=== PATIENT | male | born 1940 | race Caucasian/White ===

== ENCOUNTER → 2017-01-15 | Outpatient (CLI) | payer MEDICARE ==
[~2017-01-15] MED LIST: ACET-654 PO; ATOR1TAB21 PO; COUM2.5T11 PO; COZA50TA PO; FLOM5CAP PO; LOSA25TA8 PO; METF500T PO; METO25TAB OR; SIMV40TA2 PO; TRAM50TA2 PO
== END ==
LOC: M SMT 10:51
PROVIDERS: ATTEND Nurse Practitioner Women's Health
DX: N40.0 Benign prostatic hyperplasia without lower urinary tract symptoms (principal)
CPT/HCPCS: 36415; G0103

== ENCOUNTER → 2017-02-03 | Outpatient (REF) | payer MEDICARE ==
[2017-02-03 17:18] LABS: ALBUMIN 3.9 GM/DL (3.2-5.2); ALBUMIN/GLOBULIN RATIO 1.34 (1.00-1.93); ALKALINE PHOSPHATASE 86 U/L (45-117); ALT/SGPT 28 U/L (12-78); ANION GAP 9 MEQ/L (8-16); AST/SGOT 15 U/L (15-37); BILIRUBIN,TOTAL 0.8 MG/DL (0.2-1.0); BLOOD UREA NITROGEN 20 MG/DL (7-18); CALCIUM LEVEL 10.1 MG/DL (8.8-10.2); CARBON DIOXIDE LEVEL 25 MEQ/L (21-32); CHLORIDE LEVEL 109 MEQ/L (98-107); CHOLESTEROL LEVEL 136 MG/DL (<200); CREATININE FOR GFR 1.14 MG/DL (0.70-1.30); GLOMERULAR FILTRATION RATE > 60.0 (>42); GLUCOSE, FASTING 126 MG/DL (83-110); POTASSIUM SERUM 4.2 MEQ/L (3.5-5.1); SODIUM LEVEL 143 MEQ/L (136-145); TOTAL PROTEIN 6.8 GM/DL (6.4-8.2); TRIGLYCERIDES LEVEL 126 MG/DL (<150)
== END ==
LOC: M LABDRWCV 16:21
PROVIDERS: ATTEND Internal Medicine
DX: E11.9 Type 2 diabetes mellitus without complications (principal); E78.5 Hyperlipidemia, unspecified

== ENCOUNTER 2018-03-02 06:46 | Day surgery (SDC) | payer MEDICARE ==
[2018-03-02] MEDS: NS 1,000 ML IV (07:00)
[2018-03-02] MEDS ORDERED: PROPOFOL 200 MG/20 ML VIAL As Ordered (07:49)
[2018-03-02] MEDS ORDERED: ceFAZolin 2 GM/D5W 50 ML IV BAG (J0690 PER 500MG) As Ordered (11:03)
== END 2018-03-02 09:17 | disposition home or self-care (01) ==
LOC: M OPP 06:46
DX: Z12.11 Encounter for screening for malignant neoplasm of colon (principal); K64.0 First degree hemorrhoids; D12.3 Benign neoplasm of transverse colon; K63.5 Polyp of colon; I10 Essential (primary) hypertension; E78.00 Pure hypercholesterolemia, unspecified; F32.9 Major depressive disorder, single episode, unspecified; F41.9 Anxiety disorder, unspecified; N40.0 Benign prostatic hyperplasia without lower urinary tract symptoms; Z79.899 Other long term (current) drug therapy; Z88.8 Allergy status to other drugs, medicaments and biological substances; Z96.653 Presence of artificial knee joint, bilateral
CPT/HCPCS: 45385

== ENCOUNTER → 2018-03-09 | Outpatient (REF) | payer MEDICARE ==
[2018-03-09 19:50] LABS: PSA SCREENING 2.71 NG/ML (< 4.0)
== END ==
LOC: M SFHCCLAY 11:53
DX: Z12.5 Encounter for screening for malignant neoplasm of prostate (principal)
CPT/HCPCS: G0103

== ENCOUNTER → 2018-03-14 | Outpatient (REF) | payer MEDICARE ==
[2018-03-14 18:29] LABS: APPEARANCE, URINE CLEAR (CLEAR); BACTERIA, URINE AUTO NEGATIVE (NEGATIVE); BILIRUBIN, URINE AUTO NEGATIVE (NEGATIVE); BLOOD, URINE BLOOD NEGATIVE (NEGATIVE); COLOR, URINE YELLOW (YELLOW); GLUCOSE, URINE (UA) AUTO 1+ mg/dL (NEGATIVE); KETONE, URINE AUTO NEGATIVE (NEGATIVE); LEUKOCYTE ESTERASE, URINE AUTO NEGATIVE (NEGATIVE); MUCUS, URINE SMALL (NEGATIVE); NITRITE, URINE AUTO NEGATIVE (NEGATIVE); PROTEIN, URINE AUTO 1+ mg/dL (NEGATIVE); RBC, URINE AUTO 0 /HPF (0-3); SPECIFIC GRAVITY URINE AUTO 1.025 (1.002-1.035); SQUAMOUS EPITHELIAL CELL UR AU 0 /HPF (0-6); UROBILINOGEN, URINE AUTO 0.2 mg/dL (0.0-2.0); WBC, URINE AUTO 3 /HPF (0-3)
== END ==
LOC: M SMT 17:52
DX: N40.0 Benign prostatic hyperplasia without lower urinary tract symptoms (principal)
CPT/HCPCS: 81001

== ENCOUNTER 2018-05-19 05:58 | Day surgery (SDC) | payer MEDICARE ==
[2018-05-19] MEDS: TROPICAMIDE 1% OPHTH SOLN 2ML OS (06:20)
[2018-05-19] MEDS: PHENYLEPHRINE 2.5% OPHTH SOL 2ML OS (06:20)
[2018-05-19] MEDS: OFLOXACIN 0.3 % (OCUFLOX) OPTH SOL 5ML OS (06:20)
[2018-05-19] MEDS: PROPARACAINE 0.5% OPHTH SOL 15ML OS (06:20)
[2018-05-19 06:33] LABS: BEDSIDE GLUCOSE 159 MG/DL (83-110)
[2018-05-19] MEDS ORDERED: MIDAZOLAM INJ 2 MG/2 ML VIAL (J2250) As Ordered (07:13)
[2018-05-19] MEDS: POVIDONE-IODINE 5% OPHTH PREP SOL 30ML As Ordered (07:28)
[2018-05-19] MEDS: DUOVISC (0.50ML VISCOAT/0.55ML PROVISC) OPHTH KIT As Ordered (07:33)
[2018-05-19] MEDS: LIDOCAINE 0.75%/EPINEPHRINE 0.025% IN BSS 1ML SYR INTRACAMERAL (OR ONLY) As Ordered (07:33)
[2018-05-19] MEDS: CEFUROXIME 1MG/0.1ML INTRACAMERAL INJ As Ordered (07:33)
[2018-05-19] MEDS: BALANCED SALT IRRIGATION SOLUTION 500ML BAG (FOR OR EYE MACHINE) As Ordered (07:33)
== END 2018-05-19 08:30 | disposition home or self-care (01) ==
LOC: M SDC 05:58
DX: H25.12 Age-related nuclear cataract, left eye (principal); E11.9 Type 2 diabetes mellitus without complications; M12.9 Arthropathy, unspecified; I10 Essential (primary) hypertension; E78.00 Pure hypercholesterolemia, unspecified; K21.9 Gastro-esophageal reflux disease without esophagitis; F41.9 Anxiety disorder, unspecified; F32.9 Major depressive disorder, single episode, unspecified; N40.0 Benign prostatic hyperplasia without lower urinary tract symptoms; Z88.8 Allergy status to other drugs, medicaments and biological substances; Z79.899 Other long term (current) drug therapy; Z79.84 Long term (current) use of oral hypoglycemic drugs; Z96.653 Presence of artificial knee joint, bilateral; Z87.891 Personal history of nicotine dependence
CPT/HCPCS: 66984

== ENCOUNTER 2018-09-15 10:27 | Emergency (ER) | payer MEDICARE ==
[2018-09-15 10:58] LABS: BASO % 0.6 % (0.0-1.0); EOS # 0.3 10^3/uL (0.0-0.50); EOS % 4.5 % (0.0-3.0); HEMOGLOBIN 15.8 g/dl (13.5-17.5); IMMATURE GRANULOCYTE % 0.7 % (0-3.0); LYMPH # 1.3 10^3/uL (1.5-4.5); LYMPH % 18.7 % (24.0-44.0); MEAN CORPUSCULAR HEMOGLOBIN 32.8 pg (27.0-33.0); MEAN CORPUSCULAR HGB CONC 35.9 g/dl (32.0-36.5); MEAN CORPUSCULAR VOLUME 91.3 fl (80.0-96.0); MONO # 0.8 10^3/uL (0.0-0.8); MONO % 11.4 % (0.0-5.0); NEUTROPHILS # 4.3 10^3/uL (1.8-7.7); NEUTROPHILS % 64.1 % (36.0-66.0); PLATELET COUNT, AUTOMATED 163 10^3/uL (150-450); RED BLOOD COUNT 4.82 10^6/uL (4.30-6.10); RED CELL DISTRIBUTION WIDTH 12.4 % (11.5-14.5); WHITE BLOOD COUNT 6.7 10^3/uL (4.0-10.0)
[2018-09-15 11:08] LABS: INR 0.92; PROTHROMBIN TIME 12.5 SECONDS (12.1-14.4)
[2018-09-15 11:09] LABS: PARTIAL THROMBOPLASTIN TIME 35.3 SECONDS (25.4-37.6)
[2018-09-15 11:34] LABS: ALBUMIN 3.6 GM/DL (3.2-5.2); ALBUMIN/GLOBULIN RATIO 1.24 (1.00-1.93); ALKALINE PHOSPHATASE 114 U/L (45-117); ALT/SGPT 22 U/L (12-78); ANION GAP 7 MEQ/L (8-16); AST/SGOT 6 U/L (7-37); BILIRUBIN,DIRECT 0.1 MG/DL (0.0-0.2); BILIRUBIN,TOTAL 0.6 MG/DL (0.2-1.0); BLOOD UREA NITROGEN 22 MG/DL (7-18); CALCIUM LEVEL 10.4 MG/DL (8.8-10.2); CARBON DIOXIDE LEVEL 27 MEQ/L (21-32); CHLORIDE LEVEL 103 MEQ/L (98-107); CPK CREATINE PHOSPHOKINASE 58 U/L (39-308); CREATININE FOR GFR 1.45 MG/DL (0.70-1.30); FREE T4 1.14 NG/DL (0.76-1.46); GLOMERULAR FILTRATION RATE 50.4 (>42); GLUCOSE, FASTING 386 MG/DL (70-100); LIPASE 334 U/L (73-393); POTASSIUM SERUM 4.3 MEQ/L (3.5-5.1); SODIUM LEVEL 137 MEQ/L (136-145); TOTAL PROTEIN 6.5 GM/DL (6.4-8.2); TROPONIN I < 0.02 NG/ML (< 0.10)
[2018-09-15] MEDS ORDERED: ISOVUE-370 76% 100ML VIAL (Q9967) As Ordered (11:50)
[2018-09-15] MEDS: MORPHINE 4 MG/ML 1ML VIAL/SYRINGE (J2270) IV (12:27)
== END 2018-09-15 14:15 | disposition home or self-care (01) ==
LOC: M ED 10:27
DX: R07.89 Other chest pain (principal); E11.9 Type 2 diabetes mellitus without complications; I10 Essential (primary) hypertension; E78.5 Hyperlipidemia, unspecified
CPT/HCPCS: J2270

== ENCOUNTER 2018-11-09 12:05 | Emergency (ER) | payer MEDICARE ==
[~2018-11-09] VITALS: Ht 162.6 cm; Wt 90.9 kg
[~2018-11-09 12:05] MED LIST changes: -ACET-654 PO; +ACET1TAB55 PO; -COUM2.5T11 PO; +COUM2.5T17 PO; +DITR5TAB PO; +ESCI10TA2 PO; +FLOM0.4C39 PO; -FLOM5CAP PO; +LOSA25TA33 PO; -LOSA25TA8 PO; +LOSA50TA73 PO; -METF500T PO; +METF500T13 PO; +MOBI4TAB PO; +PERC5TAB12 PO
[2018-11-09] MEDS ORDERED: DULO1CAP3 (12:15)
[2018-11-09] MEDS ORDERED: GABA-843 PO (14:25)
[2018-11-09] MEDS ORDERED: GABAPENTIN 300 MG CAP PO ONE (14:30)
[2018-11-09 14:38] VITALS: BP 130/82
== END 2018-11-09 14:40 | disposition home or self-care (01) ==
LOC: M ED 12:05
DX: G57.93 Unspecified mononeuropathy of bilateral lower limbs (principal); E11.9 Type 2 diabetes mellitus without complications; I10 Essential (primary) hypertension; F33.9 Major depressive disorder, recurrent, unspecified; F41.9 Anxiety disorder, unspecified; N40.0 Benign prostatic hyperplasia without lower urinary tract symptoms; Z79.899 Other long term (current) drug therapy; Z79.84 Long term (current) use of oral hypoglycemic drugs; Z88.8 Allergy status to other drugs, medicaments and biological substances

== ENCOUNTER → 2018-12-01 | Outpatient (CLI) | payer MEDICARE ==
[~2018-12-01] MED LIST changes: +DULO1CAP3; +GABA-843 PO; +LOSA25TA14 PO; -LOSA25TA33 PO; -LOSA50TA73 PO; +LOSA50TA88 PO
--- NOTE | 2018-12-01 13:58 | REP ---
Three-phase bone scan of the knees: History: Bilateral knee replacements. Rule out loosening. Right knee replacement greater than 30 years ago. Left knee replacement 2016. Technique: 22.0 mCi technetium 99m MDP is injected and standard three-phase bone scanning of the knees is acquired. Findings: Anterior and posterior flow study is normal. Blood pool images and delayed scan images demonstrate expected bone prosthetic interface uptake associated with bilateral knee arthroplasties. There is no focal area of increased uptake to suggest loosening. Uptake is a little more prominent at the right patellar interface than it is on the left. Impression: No scintigraphic evidence to suggest loosening. Electronically Signed by Lacho Pond MD 12/01/2018 06:10 P
== END ==
LOC: M RAD 10:36
PROVIDERS: ATTEND Physician Assistant
DX: Z47.1 Aftercare following joint replacement surgery (principal); Z96.653 Presence of artificial knee joint, bilateral
CPT/HCPCS: 78315; A9503

== ENCOUNTER → 2018-12-19 | Outpatient (CLI) | payer MEDICARE ==
[2018-12-19 15:11] LABS: RHEUMATOID FACTOR QUANT < 10.0 IU/ML (<15.0); TOTAL PROTEIN 6.9 GM/DL (6.4-8.2)
[2018-12-19 15:21] LABS: FOLATE 18.8 NG/ML
[2018-12-20 13:12] LABS: ALBUMIN 4.11 GM/DL (3.29-5.55); ALBUMIN % 59.6 % (55.8-66.1); ALPHA-1-GLOBULIN % 4.7 % (2.9-4.9); ALPHA-2-GLOBULINS % 12.4 % (7.1-11.8); BETA-1-GLOBULINS % 6.1 % (4.7-7.2); GAMMA GLOBULIN % 12.2 % (11.1-18.8)
[2018-12-20 13:13] LABS: ALPHA-1-GLOBULINS 0.32 GM/DL (0.17-0.41); ALPHA-2-GLOBULINS 0.86 GM/DL (0.42-0.99); BETA-1-GLOBULINS 0.42 GM/DL (0.28-0.60); BETA-2-GLOBULINS 0.35 GM/DL (0.19-0.55); GAMMA GLOBULINS 0.84 GM/DL (0.65-1.58)
[2018-12-21 10:18] LABS: VITAMIN B12 LEVEL 421 PG/ML (232-1245)
== END ==
LOC: M LAB 14:03
PROVIDERS: ATTEND Psychiatry & Neurology Neurology
DX: G62.9 Polyneuropathy, unspecified (principal); M06.39 Rheumatoid nodule, multiple sites; L93.0 Discoid lupus erythematosus; E53.8 Deficiency of other specified B group vitamins; E51.9 Thiamine deficiency, unspecified

== ENCOUNTER → 2019-01-26 | Outpatient (REF) | payer MEDICARE ==
[2019-01-26 18:58] LABS: ALBUMIN 3.7 GM/DL (3.2-5.2); ALT/SGPT 21 U/L (12-78); BILIRUBIN,TOTAL 0.5 MG/DL (0.2-1.0); BLOOD UREA NITROGEN 25 MG/DL (7-18); CALCIUM LEVEL 10.2 MG/DL (8.8-10.2); CARBON DIOXIDE LEVEL 27 MEQ/L (21-32); CHLORIDE LEVEL 108 MEQ/L (98-107); CHOLESTEROL LEVEL 159 MG/DL (<200); CHOLESTEROL RISK RATIO 3.975 (<5); CREATININE FOR GFR 1.14 MG/DL (0.70-1.30); GLOMERULAR FILTRATION RATE > 60.0 (>42); GLUCOSE, FASTING 142 MG/DL (70-100); HDL CHOLESTEROL 40 MG/DL (>40); LDL CHOLESTEROL 94 MG/DL (<100); NON-HDL-C 119 MG/DL; POTASSIUM SERUM 4.4 MEQ/L (3.5-5.1); SODIUM LEVEL 141 MEQ/L (136-145); TOTAL PROTEIN 6.4 GM/DL (6.4-8.2); TRIGLYCERIDES LEVEL 126 MG/DL (<150)
[2019-01-26 19:22] LABS: HEMOGLOBIN A1c 7.5 %
== END ==
LOC: M LABDRWCV 17:02
PROVIDERS: ATTEND Internal Medicine
DX: E78.5 Hyperlipidemia, unspecified (principal); E11.9 Type 2 diabetes mellitus without complications; I10 Essential (primary) hypertension

== ENCOUNTER 2019-02-27 21:06 | Emergency (ER) | payer MEDICARE ==
[~2019-02-27] VITALS: Ht 160 cm; Wt 84.1 kg
[~2019-02-27 21:06] MED LIST changes: +METO1TAB63 OR; -METO25TAB OR
[2019-02-27] MEDS ORDERED: OMEP10CASR PO (21:36)
[2019-02-27 22:19] LABS: BASO % 0.5 % (0.0-1.0); EOS # 0.2 10^3/uL (0.0-0.50); EOS % 1.7 % (0.0-3.0); HEMATOCRIT 45.8 % (42.0-52.0); HEMOGLOBIN 15.5 g/dl (13.5-17.5); LYMPH # 1.2 10^3/uL (1.5-4.5); LYMPH % 13.9 % (24.0-44.0); MEAN CORPUSCULAR HEMOGLOBIN 32.2 pg (27.0-33.0); MEAN CORPUSCULAR HGB CONC 33.8 g/dl (32.0-36.5); MONO # 1.1 10^3/uL (0.0-0.8); NEUTROPHILS # 6.2 10^3/uL (1.8-7.7); NEUTROPHILS % 70.4 % (36.0-66.0); PLATELET COUNT, AUTOMATED 202 10^3/uL (150-450); RED BLOOD COUNT 4.82 10^6/uL (4.30-6.10); WHITE BLOOD COUNT 8.8 10^3/uL (4.0-10.0)
[2019-02-27] MEDS ORDERED: NS 1,000 ML IV SCH (22:29)
[2019-02-27 22:30] LABS: ALT/SGPT 26 U/L (12-78); BILIRUBIN,TOTAL 0.7 MG/DL (0.2-1.0); BLOOD UREA NITROGEN 24 MG/DL (7-18); CALCIUM LEVEL 10.2 MG/DL (8.8-10.2); CARBON DIOXIDE LEVEL 30 MEQ/L (21-32); CHLORIDE LEVEL 106 MEQ/L (98-107); CREATININE FOR GFR 1.28 MG/DL (0.70-1.30); GLUCOSE, FASTING 158 MG/DL (70-100); POTASSIUM SERUM 4.1 MEQ/L (3.5-5.1); SODIUM LEVEL 141 MEQ/L (136-145); TOTAL PROTEIN 7.1 GM/DL (6.4-8.2)
[2019-02-27] MEDS ORDERED: KETOROLAC 30 MG/ML VIAL (J1885) IV ONE (22:45)
[2019-02-27] MEDS ORDERED: GABAPENTIN 100 MG CAP PO ONE (22:45)
--- NOTE | 2019-02-27 23:06 | REPVR ---
EXAM: CT Head Without Contrast EXAM DATE/TIME: 02/27/2019 10:37 PM CLINICAL HISTORY: 78 years old, male; Pain; Other: AMS; Additional info: Altered mental status TECHNIQUE: Imaging protocol: Axial computed tomography images of the head/brain without contrast. Radiation optimization: All CT scans at this facility use at least one of these dose optimization techniques: automated exposure control; mA and/or kV adjustment per patient size (includes targeted exams where dose is matched to clinical indication); or iterative reconstruction. COMPARISON: No relevant prior studies available. FINDINGS: Brain: There is mild patchy low attenuation of deep white matter. There is slight prominence of the peripheral sulci. Ventricles: There is moderate prominence of the central ventricular system with some prominence of the temporal horns and some discordance to the peripheral sulci. Bones/joints: Unremarkable. No acute fracture. Sinuses: Visualized sinuses are unremarkable. No acute sinusitis. Mastoid air cells: Visualized mastoid air cells are unremarkable. No mastoid effusion. Auditory system: Debris in the left external auditory canal. Soft tissues: Unremarkable. IMPRESSION: 1. Mild chronic ischemic white matter change and atrophy. 2. Relative prominence of the central ventricular system including temporal horns with slight discordance to peripheral sulci. Some degree of normal pressure hydrocephalus is not excluded. 3. Otherwise negative noncontrast head CT. Electronically signed by: Darrian Haddad On 02/27/2019 23:06:45 PM
[2019-02-27 23:29] LABS: BILIRUBIN,DIRECT 0.2 MG/DL (0.0-0.2); CK-MB VALUE MASS < 1.0 NG/ML (<3.6); CPK CREATINE PHOSPHOKINASE 24 U/L (39-308); ETHYL ALCOHOL (ETHANOL) < 0.003 % (0.000-0.010); MB/CK RELATIVE INDEX 4.17 (< OR =4); SALICYLATE LEVEL < 1.7 MG/DL (5.0-30.0); TROPONIN I < 0.02 NG/ML (< 0.10)
[2019-02-27 23:30] VITALS: BP 113/69
[2019-02-27 23:30] LABS: ACETAMINOPHEN LEVEL < 2.0 UG/ML (10.0-30.0)
--- NOTE | 2019-02-28 05:41 | ED PDOC ---
Post-Departure Follow-Up dr mina motta faxed formal report of ct head for fu Shun Ruiz MD Feb 28, 2019 05:41
--- NOTE | 2019-02-28 08:10 | REP ---
Portable chest, 10:46 p.m., single AP semi upright view: Comparison is 09/15/2018. The lung peterson are clear. The cardiac size is normal. The kelton, mediastinum, and skeletal structures are unremarkable. Impression: Negative portable chest. There is no interval change except for positioning. Electronically Signed by Joreg Graham MD 02/28/2019 08:01 A
--- NOTE | 2019-02-28 21:27 | ECGEPIP ---
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
== END 2019-02-27 23:59 | disposition home or self-care (01) ==
LOC: M ED 21:06
DX: F03.90 Unspecified dementia, unspecified severity, without behavioral disturbance, psychotic disturbance, mood disturbance, and anxiety (principal)
CPT/HCPCS: 36415; 70450; 71045; 80053; 81001; 82248; 82550; 82553; 84443; 84484; 85025; 93005; 93041; 94760; 96361; 96374; 99285; G0480; J1885

== ENCOUNTER → 2019-05-03 | Outpatient (REF) | payer MEDICARE ==
[~2019-05-03] MED LIST changes: -DULO1CAP3; +DULO1CAP6; +OMEP10CASR PO
[2019-05-03 17:13] LABS: ALBUMIN 3.8 GM/DL (3.2-5.2); BILIRUBIN,TOTAL 0.4 MG/DL (0.2-1.0); CALCIUM LEVEL 10.2 MG/DL (8.8-10.2); CHOLESTEROL RISK RATIO 3.525 (<5); CREATININE FOR GFR 1.33 MG/DL (0.70-1.30); GLOMERULAR FILTRATION RATE 55.5 (>42); POTASSIUM SERUM 4.4 MEQ/L (3.5-5.1); TOTAL PROTEIN 7.1 GM/DL (6.4-8.2)
[2019-05-03 17:35] LABS: HEMOGLOBIN A1c 7.1 %
[2019-05-03 18:11] LABS: MAU/CREAT RATIO 264.2 MCG/MG (0.0-30.0)
== END ==
LOC: M LABDRWCV 16:12
PROVIDERS: ATTEND Internal Medicine
DX: I10 Essential (primary) hypertension (principal); E78.5 Hyperlipidemia, unspecified; E11.9 Type 2 diabetes mellitus without complications

== ENCOUNTER → 2019-08-15 | Outpatient (REF) | payer MEDICARE ==
[2019-08-15 17:15] LABS: BASO # 0.1 10^3/uL (0.0-0.2); BASO % 0.8 % (0.0-1.0); EOS # 0.5 10^3/uL (0.0-0.5); EOS % 8.3 % (0.0-3.0); HEMATOCRIT 41.7 % (42.0-52.0); HEMOGLOBIN 14.7 g/dl (13.5-17.5); LYMPH # 1.7 10^3/uL (1.5-5.0); LYMPH % 27.1 % (24.0-44.0); MEAN CORPUSCULAR HEMOGLOBIN 34.1 pg (27.0-33.0); MEAN CORPUSCULAR HGB CONC 35.3 g/dl (32.0-36.5); MEAN CORPUSCULAR VOLUME 96.8 fl (80.0-96.0); MONO # 0.7 10^3/uL (0.0-0.8); MONO % 10.8 % (0.0-5.0); NEUTROPHILS # 3.2 10^3/uL (1.5-8.5); NEUTROPHILS % 51.6 % (36.0-66.0); PLATELET COUNT, AUTOMATED 150 10^3/uL (150-450); RED BLOOD COUNT 4.31 10^6/uL (4.30-6.10); WHITE BLOOD COUNT 6.2 10^3/uL (4.0-10.0)
[2019-08-15 17:16] LABS: ALBUMIN 3.4 GM/DL (3.2-5.2); ALT/SGPT 26 U/L (12-78); BILIRUBIN,TOTAL 0.5 MG/DL (0.2-1.0); BLOOD UREA NITROGEN 21 MG/DL (7-18); C REACTIVE PROTEIN QUANTITATIV 0.34 MG/DL (0.00-0.30); CALCIUM LEVEL 9.9 MG/DL (8.8-10.2); CARBON DIOXIDE LEVEL 27 MEQ/L (21-32); CHLORIDE LEVEL 108 MEQ/L (98-107); CHOLESTEROL LEVEL 148 MG/DL (<200); CHOLESTEROL RISK RATIO 3.794 (<5); GLOMERULAR FILTRATION RATE > 60.0 (>42); GLUCOSE, FASTING 183 MG/DL (70-100); HDL CHOLESTEROL 39 MG/DL (>40); LDL CHOLESTEROL 73 MG/DL (<100); NON-HDL-C 109 MG/DL; POTASSIUM SERUM 4.1 MEQ/L (3.5-5.1); RHEUMATOID FACTOR QUANT < 10.0 IU/ML (<15.0); SODIUM LEVEL 142 MEQ/L (136-145); TOTAL PROTEIN 6.7 GM/DL (6.4-8.2); TRIGLYCERIDES LEVEL 180 MG/DL (<150)
[2019-08-15 17:32] LABS: HEMOGLOBIN A1c 7.7 %
[2019-08-18 14:22] LABS: ANA (HEP2) Negative (.); Lyme Disease IgG Ab 18 kDa Ban Absent (.); Lyme Disease IgG Ab 23 kDa Ban Present (.); Lyme Disease IgG Ab 28 kDa Ban Absent (.); Lyme Disease IgG Ab 30 kDa Ban Absent (.); Lyme Disease IgG Ab 39 kDa Ban Present (.); Lyme Disease IgG Ab 41 kDa Ban Absent (.); Lyme Disease IgG Ab 45 kDa Ban Absent (.); Lyme Disease IgG Ab 58 kDa Ban Absent (.); Lyme Disease IgG Ab 66 kDa Ban Absent (.); Lyme Disease IgG Ab 93 kDa Ban Absent (.); Lyme Disease IgG West Blot Int Negative (.); Lyme Disease IgG/IgM Antibodie 0.93 ISR (0.00-0.90); Lyme Disease IgM Ab 23 kDa Ban Absent (.); Lyme Disease IgM Ab 39 kDa Ban Absent (.); Lyme Disease IgM Ab 41 kDa Ban Absent (.); Lyme Disease IgM West Blot Int Negative (.)
== END ==
LOC: M LABDRWCV 16:10
PROVIDERS: ATTEND Internal Medicine
DX: E78.5 Hyperlipidemia, unspecified (principal); I10 Essential (primary) hypertension; G62.9 Polyneuropathy, unspecified; M54.12 Radiculopathy, cervical region; E11.9 Type 2 diabetes mellitus without complications

== ENCOUNTER 2020-02-18 11:28 | Inpatient (IN) | payer MEDICARE ==
[~2020-02-18] VITALS: Ht 170.2 cm; Wt 94.3 kg
[~2020-02-18 11:28] MED LIST changes: -DULO1CAP6; +DULO1CAP6 PO; -SIMV40TA2 PO; +SIMV40TA20 PO
[2020-02-18] MEDS ORDERED: NS 500 ML IV ONE ×2 (12:00→13:15)
[2020-02-18] MEDS ORDERED: ONDANSETRON 4MG/2ML VIAL (J2405) IV ONE (12:00)
[2020-02-18 12:05] LABS: VENOUS BASE EXCESS -9.8 (-2.0-2.0); VENOUS O2 SATURATION 60.9 % (60.0-80.0); VENOUS PARTIAL PRESSURE CO2 60.5 mmHg (38.0-50.0); VENOUS PARTIAL PRESSURE O2 39.2 mmHg (30.0-50.0); VENOUS PH 7.138 UNITS (7.330-7.430); VENOUS TOTAL CO2 21.9 MEQ/L (24.0-28.0)
[2020-02-18 12:12] LABS: BASO # 0.1 10^3/uL (0.0-0.2); BASO % 0.4 % (0.0-1.0); EOS # 0.3 10^3/uL (0.0-0.5); EOS % 1.9 % (0.0-3.0); HEMATOCRIT 43.4 % (42.0-52.0); HEMOGLOBIN 14.4 g/dl (13.5-17.5); LYMPH % 13.3 % (24.0-44.0); MEAN CORPUSCULAR HEMOGLOBIN 32.1 pg (27.0-33.0); MEAN CORPUSCULAR HGB CONC 33.2 g/dl (32.0-36.5); MEAN CORPUSCULAR VOLUME 96.9 fl (80.0-96.0); MONO # 0.9 10^3/uL (0.0-0.8); MONO % 5.9 % (0.0-5.0); NEUTROPHILS # 11.5 10^3/uL (1.5-8.5); NEUTROPHILS % 76.9 % (36.0-66.0); PLATELET COUNT, AUTOMATED 214 10^3/uL (150-450); RED BLOOD COUNT 4.48 10^6/uL (4.30-6.10)
[2020-02-18 12:22] LABS: INR 1.01
[2020-02-18 12:39] LABS: ALBUMIN 3.5 GM/DL (3.2-5.2); ALT/SGPT 52 U/L (12-78); BILIRUBIN,DIRECT < 0.1 MG/DL (0.0-0.2); BILIRUBIN,TOTAL 0.4 MG/DL (0.2-1.0); BLOOD UREA NITROGEN 25 MG/DL (7-18); CALCIUM LEVEL 9.6 MG/DL (8.8-10.2); CARBON DIOXIDE LEVEL 21 MEQ/L (21-32); CHLORIDE LEVEL 105 MEQ/L (98-107); CK-MB VALUE MASS < 1.0 NG/ML (<3.6); CPK CREATINE PHOSPHOKINASE 35 U/L (39-308); CREATININE FOR GFR 1.61 MG/DL (0.70-1.30); GLOMERULAR FILTRATION RATE 44.4 (>42); GLUCOSE, FASTING 329 MG/DL (70-100); LIPASE 103 U/L (73-393); MB/CK RELATIVE INDEX 2.86 (< OR =4); POTASSIUM SERUM 3.5 MEQ/L (3.5-5.1); SODIUM LEVEL 138 MEQ/L (136-145); TOTAL PROTEIN 6.9 GM/DL (6.4-8.2)
[2020-02-18] MEDS ORDERED: TAMS1CAP17 (12:45)
[2020-02-18] MEDS ORDERED: ASPIRIN 81 MG CHEW TABLET PO ONE (12:45)
[2020-02-18] MEDS ORDERED: JANU100T PO (12:45)
[2020-02-18] MEDS ORDERED: AMIT25TA PO (12:45)
[2020-02-18 12:54] LABS: ABG BASE EXCESS -6.2 (-2.0-2.0); ABG HCO3 18.9 MEQ/L (22.0-26.0); ABG O2 SATURATION 95.6 % (95.0-99.0); ABG PARTIAL PRESSURE CO2 36.4 mmHg (35.0-45.0); ABG PARTIAL PRESSURE O2 82.6 mmHg (75.0-100.0); ABG STANDARD HCO3 19.4 MEQ/L (22.0-26.0); ABG TOTAL CO2 20.1 MEQ/L (23.0-31.0); ABG pH (ARTERIAL) 7.334 UNITS (7.350-7.450)
--- NOTE | 2020-02-18 12:55 | REP ---
CHEST, SINGLE VIEW: Single view of the chest is performed. Comparison 02/27/2019. There is mild cardiomegaly. Mild calcification and tortuosity of the thoracic aorta. Mediastinal is unchanged. No acute infiltrate is seen. IMPRESSION: Mild cardiomegaly. No acute infiltrate. Electronically Signed by Jorge Chang MD 02/18/2020 12:58 P
[2020-02-18] MEDS ORDERED: NS 1,000 ML IV ONE (13:00)
[2020-02-18] MEDS ORDERED: NS 700 ML IV ONE (14:00)
[2020-02-18] MEDS ORDERED: PIPERACILLIN/TAZOBACTAM SOD 4.5 GM in D5W MINI-BAG PLUS 50 ML IV ONE (14:00)
[2020-02-18 14:44] LABS: CK-MB VALUE MASS 1.1 NG/ML (<3.6); MB/CK RELATIVE INDEX 2.68 (< OR =4); TROPONIN I 0.34 NG/ML (< 0.10)
--- NOTE | 2020-02-18 16:02 | HPEPDOC ---
[facility] Medical History & Physical Date of Admission Feb 18, 2020 Date of Service: Feb 18, 2020 Attending Physician: ANILA EVANGELISTA MD History and Physical CHIEF COMPLAINT: , Vomiting and abdominal pain HISTORY OF PRESENT ILLNESS: 79-year-old male with past medical history of hypertension, hyperlipidemia and diabetes mellitus presents from home with vomiting, abdominal pain. Patient felt fine up until this morning when he started experiencing significant fatigue with inability to get out of bed, which is very unusual for him. He subsequently developed left upper quadrant abdominal pain followed by 2 episodes of nonbloody vomiting. He reports significant dizziness/lightheadedness and almost passed out but does not recall any syncopal episode. He came to the emergency department and had 4 further episodes of nonbloody vomiting, no other symptoms. He was hypotensive with significantly elevated lactic acid in the ED and received aggressive IV fluid resuscitation. Patient responded really well, blood pressure within normal limits, has had near complete resolution of symptoms, no longer having any fatigue, dizziness or lightheadedness. He does appear to have increased work of breathing, currently on 2 L of oxygen by nasal cannula, not on home oxygen. He denies any significant dyspnea, cough, chest pain, diarrhea or headache. 10 point review of system is negative except for above PAST MEDICAL HISTORY: 1. Hypertension. 2. Hyperlipidemia. 3. Diabetes mellitus. PAST SURGICAL HISTORY: 1. , Bilateral knee replacements. 2. Abdominal surgery, patient unsure of what was done. 3. Wrist surgery. SOCIAL HISTORY: Previous smoker, quit many years ago. Social alcohol use. Denies drug use FAMILY HISTORY: . Both parents had malignancy ALLERGIES: Please see below. HOME MEDICATIONS: Please see below. PHYSICAL EXAMINATION: VITAL SIGNS: Please see below. GENERAL: No distress HEENT: Normocephalic, atraumatic, moist mucous membranes NECK: Supple CARDIOVASCULAR EXAMINATION: S1, S2, no murmurs RESPIRATORY EXAMINATION: Tachypneic, scattered rhonchi, no wheezing ABDOMINAL EXAMINATION: Soft, nontender, nondistended, positive bowel sounds EXTREMITIES: Range of motion intact SKIN: No rash NEUROLOGICAL EXAMINATION: Alert and oriented 3, no focal deficits PSYCHIATRIC EXAMINATION: Calm and cooperative LABORATORY DATA: See below. IMAGING: . Chest x-ray without acute pathology MICROBIOLOGY: Please see below. ASSESSMENT: 79-year-old male with multiple medical comorbidities who presented with abdominal pain and vomiting being admitted for hypotension, acute kidney injury and possible COVID-19 exposure. PLAN: 1. Acute kidney injury/hypotension/vomiting/abdominal pain. Etiology for abdominal pain is unknown, questionable COVID-19, abdominal pain, possibly the etiology for vomiting which led to hypotension, which further led to acute kidney injury/dehydration. Patient has had no oral intake today. Patient received aggressive IV resuscitation in the ED with good response, cu rrently hemodynamically stable, we'll avoid further IV hydration for now as long as COVID-19 is on the differential as that can worsen the outcome. 2. COVID-19 exposure Patient's [id number]-[id number] works at [employer], she worked up until 3 days ago, came to visit him 3 days ago, patient reports that she is asymptomatic but does have significant patient exposure. Respiratory viral panel with reflex COVID-19 ordered. Respiratory precautions as per hospital protocol 3. Elevated lactate. Likely related to hypotension with combination of metformin, should improve significantly after IV hydration, repeat pending. 4. Hypertension. Continue home meds with hold parameters. 5. Diabetes mellitus. Hold metformin, sliding scale insulin coverage with meals and at bedtime. 6. Hyperlipidemia. Continue statin DVT prophylaxis: Lovenox. GI prophylaxis: Not needed Vital Signs Vital Signs Date Time Temp Pulse Resp B/P (MAP) Pulse Ox O2 Delivery O2 Flow Rate FiO2 02/18/20 14:45 101 115/70 (85) 93 02/18/20 13:56 97.1 02/18/20 12:45 22 Nasal Cannula 2.0 Laboratory Data Labs 24H Laboratory Tests 2 02/18/20 11:49: Bedside Glucose (Misc Panel) 341H 02/18/20 11:58: Prothrombin Time 13.0, Prothromb Time International Ratio 1.01, Blood Gas Bicarbonate Standard 16.0, Venous Blood pH 7.138L, Venous Blood Partial Pressure CO2 60.5H, Venous Blood Partial Pressure O2 39.2, Venous Blood Total Carbon Dioxide 21.9L, Venous Blood HCO3 20.0L, Venous Blood Oxygen Saturation 60.9, Venous Blood Base Excess -9.8L, Anion Gap 12, Glomerular Filtration Rate 44.4, Lactic Acid Level 8.2*H, Calcium Level 9.6, Total Bilirubin 0.4, Direct Bilirubin < 0.1, Aspartate Amino Transf (AST/SGOT) 39H, Alanine Aminotransferase (ALT/SGPT) 52, Alkaline Phosphatase 110, Total Creatine Kinase 35L, Creatine Kinase MB < 1.0, Creatine Kinase MB Relative Index 2.86, Troponin I 0.10, Total Protein 6.9, Albumin 3.5, Albumin/Globulin Ratio 1.03, Lipase 103 02/18/20 11:59: Immature Granulocyte % (Auto) 1.6, Neutrophils (%) (Auto) 76.9H, Lymphocytes (%) (Auto) 13.3L, Monocytes (%) (Auto) 5.9H, Eosinophils (%) (Auto) 1.9, Basophils (%) (Auto) 0.4, Neutrophils # (Auto) 11.5H, Lymphocytes # (Auto) 2.0, Monocytes # (Auto) 0.9H, Eosinophils # (Auto) 0.3, Basophils # (Auto) 0.1, Nucleated Red Blood Cells % (auto) 0.0 02/18/20 12:22: Urine Color YELLOW, Urine Appearance CLOUDYH, Urine pH 5.0, Urine Specific [place] 1.018, Urine Protein 2+H, Urine Glucose (UA) 1+H, Urine Ketones NEGATIVE, Urine Blood 2+H, Urine Nitrite NEGATIVE, Urine Bilirubin NEGATIVE, Urine Urobilinogen 0.2, Urine Leukocyte Esterase NEGATIVE, Urine WBC (Auto) 4H, Urine RBC (Auto) 27H, Urine Hyaline Casts (Auto) 0, Urine Bacteria (Auto) 1+H, Urine Squamous Epithelial Cells 1, Urine Amorphous Sediment SMALLH, Urine Mucus (Auto) SMALL, Urine Sperm (Auto) 02/18/20 12:43: Blood Gas Bicarbonate Standard 19.4L, Arterial Blood pH 7.334L, Arterial Blood Partial Pressure CO2 36.4, Arterial Blood Partial Pressure O2 82.6, Arterial Blood Total CO2 20.1L, Arterial Blood HCO3 18.9L, Arterial Blood Base Excess - 6.2L, Arterial Blood Oxygen Saturation 95.6 02/18/20 14:08: Total Creatine Kinase 41, Creatine Kinase MB 1.1, Creatine Kinase MB Relative Index 2.68, Troponin I 0.34#H CBC/BMP Laboratory Tests 02/18/20 11:58 02/18/20 11:59 Microbiology Microbiology 02/18/20 Blood Culture, Received Pending 02/18/20 Blood Culture, Received Pending Home Medications Scheduled Atorvastatin Calcium (Atorvastatin Calcium) 20 Mg Tab, 20 MG PO DAILY Gabapentin (Gabapentin) 300 Mg Cap, 300 MG PO TID Metformin HCl (Metformin HCl) 500 Mg Tab, 500 MG PO QID Metoprolol Tartrate (Metoprolol Tartrate) 25 Mg Tab, 25 MG OR DAILY Omeprazole (Omeprazole) 10 Mg Capsule.dr, 20 MG PO DAILY Tamsulosin HCl (Flomax) 0.4 Mg Cap, 0.4 MG PO BID Scheduled PRN Acetaminophen (Acetaminophen) 325 Mg Tab, 650 MG PO BID PRN for pain Tramadol HCl (Tramadol HCl) 50 Mg Tab, 50 MG PO DAILY PRN for pain Miscellaneous Medications Amitriptyline HCl (Amitriptyline HCl) 25 Mg Tablet Duloxetine Hcl (Duloxetine HCl) 60 Mg Cap Sitagliptin Phosphate (Januvia) 100 Mg Tablet Tamsulosin Hcl (Tamsulosin HCl) 0.4 Mg Capsule Allergies Coded Allergies: meperidine (Verified Adverse Reaction, Intermediate, TACHYCARDIA, 02/27/19) A-FIB/CHADSVASC A-FIB History Current/History of A-Fib/PAF?: No ANILA EVANGELISTA MD Feb 18, 2020 16:02
[2020-02-18 16:54] LABS: INR 1.12; PROTHROMBIN TIME 14.1 SECONDS (11.8-14.0)
[2020-02-18 17:02] LABS: C REACTIVE PROTEIN QUANTITATIV 0.63 MG/DL (0.00-0.30)
[2020-02-18 17:12] LABS: CALCIUM LEVEL 8.8 MG/DL (8.8-10.2); CK-MB VALUE MASS 2.1 NG/ML (<3.6); CREATININE FOR GFR 1.66 MG/DL (0.70-1.30); GLOMERULAR FILTRATION RATE 42.9 (>42); MB/CK RELATIVE INDEX 4.57 (< OR =4); POTASSIUM SERUM 4.7 MEQ/L (3.5-5.1); TROPONIN I 0.43 NG/ML (< 0.10)
[2020-02-18 17:20] VITALS: BP 120/86
[2020-02-18] MEDS ORDERED: METF-954 PO (17:34)
[2020-02-18] MEDS ORDERED: METO1TAB32 PO (17:34)
[2020-02-18] MEDS ORDERED: GABA600T4 PO (17:34)
[2020-02-18] MEDS: NS 1,000 ML IV SCH (17:45)
[2020-02-18] MEDS: AZITHROMYCIN 250MG TABLET PO SCH (17:45)
--- NOTE | 2020-02-18 19:07 | ECGEPIP ---
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
--- NOTE | 2020-02-18 19:07 | ECGEPIP ---
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
--- NOTE | 2020-02-18 19:08 | ECGEPIP ---
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
[2020-02-18 20:00] VITALS: BP 146/70
[2020-02-18] MEDS ORDERED: DEXTROSE 50% 50 ML SYRINGE IV PRN (20:15)
[2020-02-18] MEDS ORDERED: GLUCAGON FOR INJ 1 MG VIAL (J1610) SC PRN (20:15)
[2020-02-18] MEDS ORDERED: GLUCOSE 4 GM CHEW TABLET PO PRN (20:15)
[2020-02-18] MEDS: ENOXAPARIN 40 MG/0.4 ML SYRINGE (J1650) SC SCH (20:36)
[2020-02-18] MEDS: HumaLOG INSULIN (NovoLOG) PER UNIT SC SCH (20:40)
[2020-02-19] VITALS (21 sets, daily range): BP systolic 104–138; BP diastolic 64–87; O2SAT 74–97
[2020-02-19] MEDS: NS 1,000 ML IV SCH ×3 (03:52→14:13)
[2020-02-19 05:32] LABS: HEMATOCRIT 37.4 % (42.0-52.0); HEMOGLOBIN 12.8 g/dl (13.5-17.5); MEAN CORPUSCULAR HEMOGLOBIN 32.4 pg (27.0-33.0); MEAN CORPUSCULAR HGB CONC 34.2 g/dl (32.0-36.5); MEAN CORPUSCULAR VOLUME 94.7 fl (80.0-96.0); PLATELET COUNT, AUTOMATED 159 10^3/uL (150-450); RED BLOOD COUNT 3.95 10^6/uL (4.30-6.10); WHITE BLOOD COUNT 9.8 10^3/uL (4.0-10.0)
[2020-02-19 05:54] LABS: ALBUMIN 3.3 GM/DL (3.2-5.2); BILIRUBIN,TOTAL 0.5 MG/DL (0.2-1.0); CALCIUM LEVEL 9.1 MG/DL (8.8-10.2); CREATININE FOR GFR 1.45 MG/DL (0.70-1.30); GLOMERULAR FILTRATION RATE 50.1 (>42); MAGNESIUM LEVEL 1.2 MG/DL (1.8-2.4); POTASSIUM SERUM 4.5 MEQ/L (3.5-5.1); TOTAL PROTEIN 6.2 GM/DL (6.4-8.2)
--- NOTE | 2020-02-19 07:14 | ECGEPIP ---
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
--- NOTE | 2020-02-19 07:33 | REP ---
CT CHEST WITHOUT IV CONTRAST: CT chest performed without IV contrast. Sagittal and coronal reconstruction images are performed. Comparison made with a prior study of 09/15/2018. A couple of tiny calcified granulomas are seen in the left lower lobe. No infiltrate is seen bilaterally. Minimal interstitial fibrosis is seen bilaterally. No axillary or mediastinal adenopathy is seen. There is mild ectasia of the ascending thoracic aorta with mild atherosclerotic calcification. The heart is not enlarged. There is a tiny amount of pericardial fluid/thickening. No pleural effusion is seen. There are degenerative changes of the spine. There is a small hiatal hernia. There is a cyst in the upper pole of the left kidney measuring 2.7 cm in diameter. There are degenerative changes of the spine. IMPRESSION: No evidence of infiltrate in either lung. There are a couple of tiny calcified granulomas in the left lower lobe. There is a calcified lymph node in the left hilum. No axillary or mediastinal adenopathy. Tiny amount of pericardial fluid or thickening. Small hiatal hernia. Left renal cyst. Electronically Signed by Jorge Chang MD 02/19/2020 10:19 A
[2020-02-19] MEDS ORDERED: MAGNESIUM OXIDE 400 MG TAB (MAG-OX) PO ONE (08:00)
[2020-02-19] MEDS ORDERED: cefTRIAXone SOD 1 GM in D5W MINI-BAG PLUS 50 ML IV SCH (09:00)
[2020-02-19] MEDS: HumaLOG INSULIN (NovoLOG) PER UNIT SC SCH ×4 (09:10→21:00)
[2020-02-19] MEDS: AZITHROMYCIN 250MG TABLET PO SCH (09:11)
[2020-02-19] MEDS ORDERED: ACETAMINOPHEN TAB 650MG DOSE (2X325MG) PO PRN (10:15)
[2020-02-19] MEDS ORDERED: PERCOCET 5MG/325MG TAB PO PRN ×2 (10:15)
--- NOTE | 2020-02-19 12:18 | REP ---
REASON: Pain. COMPARISON: 11/27/2013, the latest prior. AP and lateral views of the right knee were obtained portably. The mild portable two-view exam shows no significant change from the prior exam. Once again, there is a total knee prosthetic device in place, the femoral and tibial components of which appear unchanged from the prior exam. No abnormal periprosthetic lucencies seem to have developed on this limited exam. There is no evidence of a gross fracture. IMPRESSION: Limited exam showing no significant changes as described above. Electronically Signed by Brendan Green DO 02/19/2020 02:49 P
--- NOTE | 2020-02-19 16:09 | CR ---
DATE OF CONSULTATION: This is for the hospitalist service for an evaluation of his right knee pain. HISTORY: This is a 79-year-old male patient who was admitted for abdominal pain, nausea and vomiting. It was noted during his review of systems to have pain in his right knee. The patient had knee replacement done approximately 25 years ago he believes by Dr. Salvador, though Dr. Salvador has not been operating in our office for 25 years. So, it is likely he had the right knee done by another surgeon. He is not quite aware of who the surgeon was. He is on protocol for possible coronavirus exposure as the patient was seen in for protective gear. Verbal consent was given by the patient for the exam. He notes that he has had troubles with that knee. Over the last 3 or 4 months he has noted more troubles with that knee, but overall he has had troubles with that knee for the last a year or so. He has had swelling in the knee. He has not noted any redness in the knee. Denies any other orthopedic complaints at this point. Denies injuries to that knee. Denies any fall or striking that knee, and he feels his knee pain is about the same as it was before his latest admission. He is due to go home in the next couple days. He does use a walker at home. At times, he feels the knee will complete bear his weight, other days is not quite very problematic form. He has been working on knee range of motion to try to maintain his motion is much as possible. Past medical history includes hypertension, elevated lipids, diabetes. His current admission is for vomiting, abdominal pain and fatigue. He has noted improvement in symptoms since being admitted. Surgical history includes total knee arthroplasty bilaterally, prior abdominal surgery that he is unaware of, prior wrist surgery again he is unaware of. SOCIAL HISTORY: He is a prior smoker but currently does not smoke. He does occasionally use alcohol. FAMILY HISTORY: Noncontributory. CURRENT MEDICATIONS (from home include): - atorvastatin - gabapentin 300 mg - metformin 500 mg four times a day - metoprolol 25 mg 1 tablet once per day - Prilosec 10 mg 2 tablets daily - Flomax 0.4 mg 1 tablet twice a day ALLERGIES include DEMEROL. X-rays were obtained of the knee and reviewed. Notable for no gross fracture. There is a total knee arthroplasty with notable polyethylene wear. There is some increased uptake around the femoral component but no gross loosening noted. I reviewed those images, two views, they were of poor quality. I compared them to the radiographs from 2014, there is some increased femoral clear space on those as well. Exam today reveals an alert male patient in a hospital bed. He understands where he is. He understands what hospital he is in. He understands today's date. He is able to tell me about his right knee. Exam of the right knee does reveal mild edema around the right knee but no increased warmth to touch. He can do a straight leg raise without difficulty. Calf is soft, nontender to palpation. No pain with passive range of motion of the ankle. He can flex to about 80 degrees. Extension he lacks about 2 degrees to complete extension, is stable to varus and valgus stress. No irritability with hip roll on the right side. There is decreased hair pattern along the right lower extremity but dorsalis pedis and posterior tibial pulses are palpable. There is symmetrical rise and fall of chest, unlabored breathing. His mood and affect appropriate for the situation. There is well-healed surgical scar around both knees consistent with surgical history. Exam of the left knee reveals good knee range of motion without irritability. There is no increased warmth to touch. No erythema. No open wounds around either knee. No gross signs of infection around either knee. WBC count 15.0 on admission, repeat today 9.8. IMPRESSION: Right knee pain status post a total knee arthroplasty approximately 25 years ago with symptoms ongoing for at least 4 months now. PLAN: I talked to the patient about his symptoms at some point he should have a workup done for loosening. He understands that at some point he would prefer to get a workup done on that knee but he would prefer not to do it in a hospital currently. There is no gross signs of infection around the knee. It is not warm to the touch. There is no discharge and there is no redness. There is no erythema. I explained to him we could try to aspirate the knee today, he would prefer not do anything like that today. So, I think at this point we are dealing with a total knee arthroplasty that most likely has the early signs consistent with loosening and with the age of the total knee done at this point it is likely there is early loosening. He understands at this point the option would be a further workup. He would prefer at this point to leave things well enough alone. He would like to followup on an outpatient basis. He will use his walker he already has. He was using a walker prior to his admission. He will to weight-bear as tolerated on his lower extremities. He can see us in about a month in the orthopedic clinic for followup on an outpatient basis. Feel free to contact us if any changes and thanks for the consult. EARL
--- NOTE | 2020-02-19 16:34 | IPNPDOC ---
Text Note Date of Service The patient was seen on 02/19/20. NOTE S: Pt examined at bedside. States he is feeling well. Afebrile. Tolerating oral intake. No shortness of breath or chest pain. Complains of right knee pain from a fall sustained 2 weeks ago on ice. PE: Vitals: see below General: NAD, A&Ox3, resting comfortably HEENT: NCAT, EOMI, anicteric sclera, MMM CV: RRR, no murmurs or clicks or rub. No edema RESP: CTAB, no w/r/r/, no accessory muscle use ABD: soft, NT, ND. Benign EXTREMITIES: 2+ radial pulses b/l, able to move all extremities. Rt knee diffusely swollen, erythematous, tender to palpation medially, slow on mvmt due to pain NEURO: no focal deficits or acute changes A/P: 79 yo M here for fatigue, non-bloody vomiting, abdominal pain. Found to be septic on admission with elevated lactate, tachycardic, tachypnic, with elevated WBC at 15. Source of infx unclear at this time. He is improving on abx & supportive care. 1. Sepsis * Resolved with sepsis protocol. Etiology unclear at this point. They have been 2/2 possible gastroenteritis with recent nausea vomiting and abdominal di scomfort prior to admission * Blood cultures negative at 24 hours. Respiratory panel negative. COVID 19 test pending * Will DC antibiotics and monitor. May be 2/2 his nausea and vomiting and dehydration prior to admission. Is otherwise afebrile with leukocytosis resolved within 24 hours of admission. 2. Presyncope * likely 2/2 dehydration & decreased po intake. Patient feels back to his baseline and is tolerating all by mouth intake well. No emesis or presyncopal events since admission. Continue supportive care and orthostatics check 3. Lactic acidosis * 8.2 on admission. Improving with IV hydration. Continue. 4. Right knee pain * S/P mechanical fall 2 weeks ago in the ice. He reports surgical repair 25 years ago. Edematous, erythematous, painful on exam. Initial x-ray unremarkable. Ortho consulted, appreciate input. 5. HEBERT on CKD 3 * Baseline creatinine 1.2. Improving s/p IV fluids and holding nephrotoxins. Monitor 6. Hypomagnesemia * Supplement And reassess 7. Elevated troponins * Patient has no cardiac complaint. Likely 2/2 demand ischemia from his initial septic state. No acute changes on telemetry or EKG. Repeat troponins are stable. 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 Continue insulin sliding inpt. Continue Gabapentin Hypertension - hold BBlocker given soft bp BPH - temporarily hold Flomax until blood pressure stabilizes DVT ppx: Lovenox sc DISPO: pending Ortho eval rt knee and encourage ambulation. Likely home 24-72 hrs. VS,Fishbone, I+O VS, Fishbone, I+O Laboratory Tests 02/18/20 16:10 02/19/20 04:54 Vital Signs Date Time Temp Pulse Resp B/P (MAP) Pulse Ox O2 Delivery O2 Flow Rate FiO2 02/19/20 12:00 1.0 02/19/20 12:00 97.4 109 18 122/87 (99) 94 Nasal Cannula I&O- Last 24 Hours up to 6 AM 02/19/20 06:00 Intake Total 2700 ml Output Total 675 ml Balance 2025 ml GME ATTESTATION GME ATTESTATION My faculty preceptor for this patient encounter was physically present during the encounter and was fully available. All aspects of the patient interview, examination, medical decision making process, and medical care plan development were reviewed and approved by the faculty preceptor. The faculty preceptor is aware and concurs with the plan as stated in the body of this note and will attest to such by his/her cosignature. RUSTY NEUMANN DO Feb 19, 2020 16:34
[2020-02-19] MEDS: LR 1,000 ML IV SCH (17:27)
--- NOTE | 2020-02-19 19:44 | ECHO ---
DATE OF PROCEDURE: 02/19/2020 Date of : 1940 Age: 79 Height: 67 inches Weight: 200 pounds Body surface area: 2.02 meters squared Inpatient: Progressive care unit (PCU), room 3212. REFERRING PHYSICIAN: Dr. Tracy Gonzales INDICATION: Cardiac dysrhythmia/abnormal EKG> MEASUREMENTS: 2D Measurements: RV: 5.0 cm LV: 4.1 cm Septum: 1.1 cm Posterior wall: 1.0 cm Aortic root: 3.9 cm LA: 4.2 cm LVEF: 40% Doppler Measurements: AV: 2.05 meters per second LVOT: 1.5 meters per second LVOT diameter: 2.2 cm MV-E: 67, A: 102, EA ratio: 0.7 Early mitral deceleration time: 113 milliseconds E prime medial: 8, A prime medial: 6, E prime lateral: 4.2. Average E/E prime ratio: 11/pulmonary capillary wedge pressure: 15.5 mmHg. PV: 0.4 meters per second Pulmonary artery acceleration time: 74 milliseconds RVSP: 50 mmHg IVC: 2.7 cm COMMENTS: Sinus tachycardia at 102 beats per minute (bpm). Right bundle branch block. Technically difficult study in light of the patient's body habitus but diagnostically useful information was still obtained. M-mode and two-dimensional echocardiography was performed with pulsed, continuous wave, color flow and tissue Doppler studies. Normal left ventricular size and wall thickness, though there was some thinning of the proximal inferior wall with associated akinesis in keeping with prior infarction. Paradoxical septal wall motion suspected to be related to separate right ventricular pressure overload. At least moderate impairment of global resting left ventricular systolic function. Mildly dilated left atrium with grade 2 LV diastolic dysfunction and currently mildly elevated mean left atrial pressure. Moderately dilated right heart chambers with slight right free wall hypokinesis and Doppler evidence of at least moderately severe pulmonary hypertension. Prominently dilated inferior vena cava with absent respiratory collapse in keeping with an elevated central venous pressure. Normal ascending aorta but borderline dilated aortic root. Three equal size aortic cusps with mild cusp edge thickening but adequate cusp separation. Elevated Doppler flow measurements are related to increased stroke volume rather than left ventricle outflow tract obstruction. Unable to detect any insufficiency. Mitral valve appeared to be normal and we could not detect any insufficiency. Normal appearing tricuspid valve with at least mild to moderate insufficiency. No apparent intracardiac mass or pericardial effusion. MTDD
[2020-02-19] MEDS ORDERED: DULoxetine 30 MG CAP (CYMBALTA) PO SCH (21:00)
[2020-02-19] MEDS ORDERED: AMITRIPTYLINE 25 MG TAB PO SCH (21:00)
[2020-02-19] MEDS: GABAPENTIN 300 MG CAP PO SCH (21:39)
[2020-02-19] MEDS: ENOXAPARIN 40 MG/0.4 ML SYRINGE (J1650) SC SCH (21:40)
[2020-02-20] VITALS (11 sets, daily range): BP systolic 122–140; BP diastolic 62–88; O2SAT 92–96
[2020-02-20] MEDS: METOPROLOL TART 12.5 MG PER 1/2 TAB PO SCH ×3 (01:40→11:58)
[2020-02-20] MEDS: LR 1,000 ML IV SCH (04:17)
[2020-02-20 05:55] LABS: HEMATOCRIT 36.4 % (42.0-52.0); HEMOGLOBIN 12.3 g/dl (13.5-17.5); MEAN CORPUSCULAR HEMOGLOBIN 31.9 pg (27.0-33.0); MEAN CORPUSCULAR HGB CONC 33.8 g/dl (32.0-36.5); MEAN CORPUSCULAR VOLUME 94.3 fl (80.0-96.0); PLATELET COUNT, AUTOMATED 166 10^3/uL (150-450); RED BLOOD COUNT 3.86 10^6/uL (4.30-6.10); WHITE BLOOD COUNT 8.9 10^3/uL (4.0-10.0)
[2020-02-20 06:14] LABS: BLOOD UREA NITROGEN 19 MG/DL (7-18); CALCIUM LEVEL 9.2 MG/DL (8.8-10.2); CARBON DIOXIDE LEVEL 21 MEQ/L (21-32); CHLORIDE LEVEL 112 MEQ/L (98-107); CREATININE FOR GFR 1.16 MG/DL (0.70-1.30); GLOMERULAR FILTRATION RATE > 60.0 (>42); GLUCOSE, FASTING 178 MG/DL (70-100); MAGNESIUM LEVEL 1.3 MG/DL (1.8-2.4); POTASSIUM SERUM 4.5 MEQ/L (3.5-5.1); SODIUM LEVEL 142 MEQ/L (136-145)
[2020-02-20] MEDS: HumaLOG INSULIN (NovoLOG) PER UNIT SC SCH ×2 (07:30→11:58)
[2020-02-20] MEDS: GABAPENTIN 300 MG CAP PO SCH (07:30)
[2020-02-20] MEDS: MAG SULF 1GM/100ML (MAG RUN) 1 GM in IV 1 EA IV SCH ×5 (07:43→11:57)
--- NOTE | 2020-02-20 10:29 | ECGEPIP ---
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 LA conduction disturbance. First-degree AV block. Indeterminant frontal axis with somewhat low voltagesand right bundle branch block with prominent right precordial R waves; body habitus versus pulmonary disease with RVH. Increased atrial ectopy from 02/18/20. Electronically Signed on 02-20-2020 10:28:45 EDT by Patricio Dia
[2020-02-20] MEDS ORDERED: ELIQ5TAB PO (10:58)
== END 2020-02-20 16:14 | disposition home health service (06) | DRG 872 ==
LOC: M ED 11:28 → EDBD 11:28 → M ED INP 15:45 → ENRESERV 15:55 → M PCU 17:05
PROVIDERS: ADMIT Internal Medicine; ATTEND Internal Medicine
DX: A41.9 Sepsis, unspecified organism (principal); N17.9 Acute kidney failure, unspecified; T84.031A Mechanical loosening of internal left hip prosthetic joint, initial encounter; E87.2 Acidosis; I24.8 Other forms of acute ischemic heart disease; I12.9 Hypertensive chronic kidney disease with stage 1 through stage 4 chronic kidney disease, or unspecified chronic kidney disease; E78.5 Hyperlipidemia, unspecified; E83.42 Hypomagnesemia; K52.9 Noninfective gastroenteritis and colitis, unspecified; E11.22 Type 2 diabetes mellitus with diabetic chronic kidney disease; R10.9 Unspecified abdominal pain; Y83.1 Surgical operation with implant of artificial internal device as the cause of abnormal reaction of the patient, or of later complication, without mention of misadventure at the time of the procedure; R55 Syncope and collapse; N18.3 Chronic kidney disease, stage 3 (moderate); Z11.59 Encounter for screening for other viral diseases; Z20.828 Contact with and (suspected) exposure to other viral communicable diseases; Z87.891 Personal history of nicotine dependence; Z79.84 Long term (current) use of oral hypoglycemic drugs; Z96.653 Presence of artificial knee joint, bilateral; Z79.899 Other long term (current) drug therapy